=== PATIENT | female | born 1965 | race Caucasian/White ===

== ENCOUNTER 2016-11-24 03:30 | Inpatient (IN) | payer OTHER ==
[~2016-11-24] VITALS: Ht 154.9 cm; Wt 87.5 kg
[~2016-11-24 03:30] MED LIST: LEVOTHYROXINE50 MCG PO; NEXIUM40 M1 PO; ZOLOFT100 M1 PO
[2016-11-24] MEDS ORDERED: COLACE100 M1 PO (10:06)
[2016-11-24] MEDS ORDERED: MIRALAX17 G1 PO (10:06)
[2016-11-24] MEDS ORDERED: ASPIRIN EC325 M2 PO (10:06)
--- NOTE | 2016-11-24 10:06 | RADIOLOGY REPORT ---
EXAMINATION: XR HIP, RIGHT CLINICAL INFORMATION: Status post total hip arthroplasty. COMPARISON: None TECHNIQUE: Two views of the right hip. FINDINGS: Postoperative changes identified with a metallic acetabular cup and short intramedullary femoral component without evidence of immediate hardware complication or fracture. IMPRESSION: Postoperative changes without evidence of consultation.
[2016-11-24] MEDS ORDERED: MS CONTIN15 M2 PO (10:07)
[2016-11-24] MEDS ORDERED: DILAUDID2 M1 PO (10:07)
--- NOTE | 2016-11-24 10:14 | Patient Discharge Instructions ---
Discharge Instructions General Discharge Information You were seen/treated for: Right hip pain secondary to unilateral primary osteoarthritis You had these procedures: Right total hip replacement Watch for these problems: Increasing pain despite the use of pain medication. Increasing redness, warmth, swelling. Drainage of any type from incision. Inability to bear weight on right leg. Persistent nausea and vomitting. Fever greater than 101.5 degrees. Do not soak the wound: Yes No bath, but you may shower: Yes Other wound care: Keep wound clean and dry. Your dressing will be changed on the second day following your surgery, daily dry dressing changes recommended after that. No ointments of any type at any time on or near your incision. No exceptions. Special Instructions: Blood thinner: Aspirin 325 mg is to be taken twice daily to protect you agains the development of a blood clot. Please take with food, and continue to take your medication for acid reflux. Constipation: Pain medication can be very constipating. Please be sure to take your colace and miralax daily to assure you are moving your bowels. You may discontinue this medication if you are having diarrhea. Diet Continue normal diet: Yes Recommended Diet: Regular Additional DIET Information: Advance as tolerated Activity Full Activity/No Limits: No Activity Self Limited: Yes Pounds, do NOT lift more than: 10 Additional ACTIVITY Info: Weight bear as tolerated on right leg. Acute Coronary Syndrome Inclusion Criteria At DC or during hospital stay patient has or had the following: ACS DIAGNOSIS No Discharge Core Measures Meds if any: Prescribed or Continued at Discharge Meds if any: NOT Prescribed or Continued at Discharge Congestive Heart Failure Inclusion Criteria At DC or during hospital stay patient has or had the following: CHF DIAGNOSIS No Discharge Core Measures Meds if any: Prescribed or Continued at Discharge Meds if any: NOT Prescribed or Continued at Discharge Cerebrovascular accident Inclusion Criteria At DC or during hospital stay patient has or had the following: CVA/TIA Diagnosis No Discharge Core Measures Meds if any: Prescribed or Continued at Discharge Meds if any: NOT Prescribed or Continued at Discharge Venous thromboembolism Inclusion Criteria VTE Diagnosis No VTE Type NONE VTE Confirmed by (Test) NONE Discharge Core Measures - Per Current guidelines, there needs to be overlap - treatment for the first 5 days of Warfarin therapy. - If discharged on Warfarin prior to 5 days of - overlap therapy, the patient will need to be - assessed for post discharge needs including - *Post discharge parental anticoagulation - *Warfarin and/or parental anticoagulation education - *Follow up date to check INR post discharge At least 5 days overlap therapy as Inpatient No Meds if any: Prescribed or Continued at Discharge Note: Overlap Therapy is Warfarin and Anticoagulant Meds if any: NOT Prescribed or Continued at Discharge
--- NOTE | 2016-11-24 10:15 | Admission Core Measures ---
Admission Lab Results I reviewed the following labs: Laboratory Tests 11/24 06 Urines Urine Test NEGATIVE Admission Meds I reviewed the following Meds: Current Medications Sig/Stacey Start time Last Medication Dose Stop Time Status Admin Acetaminophen 975 MG ONCE 11/24 0000 NR (Tylenol) 11/24 2358 Cefazolin Sodium 2,000 MG ONCE 11/24 0000 NR (Kefzol-Ancef Inj) 11/24 2358 Levothyroxine Sodium 0.05 MG DAILY AC 11/24 1000 AC (Synthroid) Omeprazole 40 MG DAILY AC 11/25 0700 AC (Prilosec) Oxycodone HCl 10 MG ONCE 11/24 0000 NR (Roxicodone) 11/24 2358 Sertraline HCl 150 MG DAILY 11/24 1000 AC (Zoloft) Acute Coronary Syndrome Inclusion Criteria ACS Diagnosis No Inpatient Core Measures LDL Reminder: If No, please order W/I first 24hr of stay Congestive Heart Failure Inclusion Criteria CHF Diagnosis No Cerebrovascular accident Inclusion Criteria CVA/TIA Diagnosis No Inpatient Core Measures Bedside Swallow Eval Reminder: If BSE failed, place ST order Antithrombotic Reminder: Order Antithrombotic Medication by end of day 2 Antithrombotic Reminder: Document Reason Antithrombotic Not ordered by end of day 2 AFIB/Flutter Reminder: If Present, add to problem list AFIB/Flutter Reminder: Order Anticoag Medication for pts with AFIB/Flutter Atherosclerosis Reminder: If Present, add to problem list LDL Reminder: If No, please order W/I first 24hr of stay PT Order Reminder: If No, please order Venous thromboembolism Inpatient Core Measures VTE Risk Factors: Age > 40, Surgery No [facility] VTE prophylaxis d/t No contraindications No VTE Pharm Prophylaxis d/t No contraindications Inclusion Criteria - Per Current guidelines, there needs to be overlap - treatment for the first 5 days of Warfarin therapy. - Parenteral Anticoagulation (IV or SC) needs to be - given along with Warfarin therapy. VTE Diagnosis No VTE Type NONE VTE Confirmed by (Test) NONE Problem List As ranked by this Provider includes Assessment & Plan 1. Unilateral primary osteoarthritis, right hip HOME MEDS Home Med List Esomeprazole (Nexium) 40 MG CAPSULE. 1 CAP PO DAILY GERD (Reported) Hydromorphone HCl (Dilaudid) 2 MG TABLET 1-2 TAB PO Q4-6 PRN PAIN Levothyroxine Sodium 50 MCG TABLET 1 TAB PO DAILY HYPOTHYROID (Reported) Morphine Sulfate (Ms Contin) 15 MG TABLET.ER 1 TAB PO BID PAIN Sertraline HCl (Zoloft) 100 MG TABLET 1.5 TAB PO DAILY DEPRESSION (Reported)
--- NOTE | 2016-11-24 10:20 | Surgical Discharge Summary ---
Visit Information Visit Dates Admission Date: 11/24/16 Discharge Date: 11/26/16 History of Present Illness Chief Complaint: Right hip pain secondary to osteoarthritis Surgical History Pertinent Surgical History: non-contributory Review of Systems: See H&P Hospital Course Course Attending Physician: SANJAY GEE MD Primary Care Physician: NETTIE WOO [facility] Course: Vanda was admitted to the hospital on 11/24/2016 and underwent a right total hip replacement. She tolerated the procedure well and was transferred to a general surgical floor. There, her vital signs remained stable and her neurovascular status remained intact. Her diet was advanced and tolerated. She voided spontaneously. Her pain was controlled with po pain medication. She was evaluated and treated by physical therapy and was deemed appropriate for discharge. Allergies: Coded Allergies: diazepam (From VALIUM) (SHAKES 11/19/16) epinephrine (PALPATATIONS 11/19/16) Disposition Summary Disposition Principal Diagnosis: Unilatera primary osteoarthritis right hip Additional Diagnosis: none Discharge Disposition: home health services Discharge Instructions General Discharge Information Code Status: Full Code Patient's Diet: Regular, advance as tolerated Patient's Activity: WBAT right hip Follow-Up Instructions/Appts: Follow up with Dr. Gee in 6 weeks from date of surgery Medications at Discharge Discharge Medications: Continue taking these medications: Sertraline HCl (Zoloft) 100 MG TABLET 1.5 Tablet ORAL DAILY Comments: Last Taken:11/26/16 Time:9:30 AM Esomeprazole (Nexium) 40 MG CAPSULE. 1 Capsule ORAL DAILY Comments: Last Taken:11/26/16 Time:6 AM PRILOSEC GIVEN IN HOSP Levothyroxine Sodium (Levothyroxine Sodium) 50 MCG TABLET 1 Tablet ORAL DAILY Comments: Last Taken:11/26/16 Time:6 AM Start taking the following new medications: Hydromorphone HCl (Dilaudid) 2 MG TABLET 1-2 Tablet ORAL EVERY 4-6 HOURS as needed for PAIN Qty = 36 No Refills Comments: Last Taken:11/26/16 Time:9:50 AM Morphine Sulfate (Ms Contin) 15 MG TABLET.ER 1 Tablet ORAL TWICE DAILY Qty = 2 No Refills Aspirin (Ecotrin*) 325 MG TABLET.DR 1 Tablet ORAL TWICE DAILY Qty = 60 No Refills Comments: Last Taken:11/26/16 Time:9:30 AM Docusate Sodium (Colace) 100 MG CAPSULE 1 Capsule ORAL TWICE DAILY Qty = 14 No Refills Instructions: DISCONTINUE USE IF YOU DEVELOP LOOSE STOOL OR DIARRHEA Comments: Last Taken:11/26/16 Time:9:30 AM Polyethylene Glycol 3350 (Miralax) 17 GRAM POWD.PACK 1 Packet ORAL DAILY Qty = 7 No Refills Instructions: dissolve in water, DISCONTINUE USE IF YOU DEVELOP LOOSE STOOL OR DIARRHEA Comments: Last Taken:11/26/16 Time:9:30 AM Miconazole Nitrate (Monistat 7) 2 % CREAM.APPL 1 Application On the skin DAILY Qty = 1 No Refills
[2016-11-24 11:30] VITALS: BP 108/70
--- NOTE | 2016-11-24 13:30 | PN- Orthopedic ---
Subjective Subjective: The patient was seen this afternoon postoperatively. She complains of some sciatic-like pain down the back of her thigh for which the current pain regiment does help. She has no other complaints current time and denies any chest pain or difficulty breathing. Objective Vital Signs and I&Os Vital Signs Date Time Temp Pulse Resp B/P B/P Pulse O2 O2 Flow FiO2 Mean Ox Delivery Rate 11/24 1130 97.4 76 18 108/70 95 Room Air 11/24 1036 99 Room Air Room Air Intake & Output 11/24 1600 11/24 0811/24 0000 11/23 1600 11/23 0811/23 0000 Intake Total Output Total Balance Patient 193 lb Weight Weight Reported by Patient Measurement Method Physical Exam: Gen.: Alert and in obvious distress Skin: Warm and dry Cardiac: S1-S2 regular Pulmonary: Bilateral breath sounds were equal with good exchange Extremities: Bilateral lower extremities are warm without calf tenderness or significant edema. Gross motor and sensory are intact. Right hip surgical dressing is clean, dry, and intact. Assessment/Plan Assessment/Plan Assessment: 51-year-old female status post right total hip arthroplasty. Postoperative the patient is progressing as expected and her pain is under adequate control. Plan: Out of bed with physical therapy patient is weightbearing as tolerated Continue current pain regiment 2 doses of postoperative prophylactic antibiotics GI and DVT prophylaxis First dose of aspirin tonight Follow-up morning laboratory studies Strict I's and O's Incentive spirometry Resume home medications including Cipro which she is taking for a UTI Core Measures/Miscellaneous Venous Thromboembolism VTE Risk Factors: Age > 40, Surgery VTE Contraindications: No Contraindications VTE Diagnosis: No VTE Type: NONE VTE Confirmed by (Test): NONE Beta Maeve Is Beta Maeve a Home Med? No Antibiotics Is Patient on Antibiotics? Yes If Yes: prophylaxis
[2016-11-24 15:37] VITALS: BP 108/52
--- NOTE | 2016-11-24 17:54 | Operative Report ---
Operative/Inv Procedure Report Surgery Date: 11/24/16 Name of Procedure: Right total hip replacement Pre-Operative Diagnosis: Primary right hip DJD Post-Operative Diagnosis: Same Estimated Blood Loss: 250 Surgeon/Director Retirement: GERARD URBINA,SANJAY Resendez Anesthesia: block Operative/Procedure Note Note: Description of Procedure: The patient was taken to the operating room and positively identified. After induction of spinal anesthesia and administration of appropriate pre-operative antibiotics, the patient was positioned supine on the operating room table and all bony prominences were well padded. After performing a surgical timeout, the right lower extremity was prepped and draped in the usual sterile fashion. A direct anterior approach was made to the right hip. The incision was carried sharply through superficial soft tissues to the level of the fascia. Meticulous hemostasis was maintained with Bovie electocautery. The fascia over the tensor fascia jessica muscle was opened sharply and the interval between the TFL and the sartorius was entered bluntly taking care to stay lateral to the lateral femoral cutaneous nerve. Retractors were placed around the femoral neck and the pericapsular fat was identified. The ascending branches of the lateral femoral circumflex vessels were identified and carefully coagulated. The pericapsular fat and anterior capsule were then resected. A napkin ring osteotomy was performed and the femoral head was removed without difficulty. Attention was then turned to the acetabulum. After appropriate placement of retractors, the acetabulum was exposed. Soft tissue was cleaned from the acetabular margin and notch. Overhanging osteophytes were removed and the teardrop was exposed. The acetabulum was then sequentially reamed to accept a 50 mm Jose Luis Tritanium hemispherical 32 shell. This was impacted into place in the appropriate position and fitted with a to mm Trident X3 zero degree polyethylene insert. Attention was then turned to the femur. After performing the appropriate ligament releases, the proximal femur was exposed. It was then sequentially broached to accept a size 2 Conway accolade 2 stem. This was trialed for leg length and stability. The trial component was removed and the final component was impacted into place. The trunnion was carefully cleaned and fit with a 32 mm, +0 Biolox delta ceramic femoral head. The hip was reduced and put through a full range of motion and found to be stable. The articular space was then irrigated with sterile saline. The periarticular soft tissues were infilitrated with Marcaine. The fascial layer was closed with interrupted #1 vicryl suture and the skin was re-approximated with interrupted 2 -0 vicryl. The skin was closed with a running 3-0 V-Lock suture. Steri-strips and a sterile dressing were applied. The patient was awakened and taken to the recovery room in satisfactory condition.
[2016-11-24 18:59] VITALS: BP 112/60
[2016-11-24 22:52] VITALS: BP 112/60
[2016-11-25 03:05] VITALS: BP 118/72
[2016-11-25 06:25] VITALS: BP 110/70
--- NOTE | 2016-11-25 07:57 | PN- Orthopedic ---
Subjective Subjective: Awale, alert Did not sleep well Complaining of pain at surgical site, inability to sleep, UTI at admission causing pain with urinating and burning in the groin area Objective Vital Signs and I&Os Vital Signs Date Time Temp Pulse Resp B/P B/P Pulse O2 O2 Flow FiO2 Mean Ox Delivery Rate 11/25 0625 97.9 72 20 110/70 94 Room Air 11/25 0318 98 Room Air 11/25 0305 97.7 72 20 118/72 96 Room Air 11/24 2252 98.5 65 20 112/60 95 Room Air 11/24 1859 98.3 67 20 112/60 97 Room Air 11/24 1648 Room Air Room Air 11/24 1537 98.4 73 18 108/52 94 11/24 1130 97.4 76 18 108/70 95 Room Air 11/24 1036 99 Room Air Room Air Intake & Output 11/25 0800 11/25 0000 11/24 1600 11/24 0800 11/24 0000 11/23 1600 Intake Total 1400 660 Output Total 3043 407 5309 Balance -1000 500 -590 Intake, IV 600 300 Intake, Oral 800 360 Number 0 Bowel Movements Output, Urine 1300 409 1092 Patient 193 lb Weight Weight Reported by Patient Measurement Method Physical Exam: vss, afebrile voiding well General: alert and oriented times three Chest: clear anteriorly bilaterally, no rales/rhonchi/wheezes, RRR Abd: soft, good bs Ext: warm, no edema, positive sensate, no calf tenderness Wound: dressed, dry Assessment/Plan Assessment/Plan 51yo female pod 1 s/p R ROMMEL PT - wbat continue cipro as preadmit for UTI add asa 325mg po bid for dvt ppx pain management Core Measures/Miscellaneous Venous Thromboembolism VTE Risk Factors: Age > 40, Surgery VTE Contraindications: No Contraindications VTE Diagnosis: No VTE Type: NONE VTE Confirmed by (Test): NONE Beta Maeve Is Beta Maeve a Home Med? No Antibiotics Is Patient on Antibiotics? Yes If Yes: prophylaxis
[2016-11-25 08:14] LABS: ABSOLUTE BASOPHIL COUNT 0 /CUMM (0.0-0.2); ABSOLUTE EOSINOPHIL COUNT 0.1 /CUMM (0.0-0.7); ABSOLUTE GRANULOCYTE CT 7.2 /CUMM (1.4-6.5); ABSOLUTE LYMPH COUNT 1.5 /CUMM (1.2-3.4); ABSOLUTE MONOCYTE COUNT 0.7 /CUMM (0.10-0.60); BASOPHIL % 0.1 % (0.0-2.0); EOSINOPHIL % 0.5 % (0-5); GRANULOCYTE % 76.6 % (42.2-75.2); HEMATOCRIT 34.7 % (37-47); MEAN CORPUSCULAR HGB 28.4 PG (27.0-31.0); MEAN CORPUSCULAR HGB CONC 34.2 G/DL (33.0-37.0); MEAN CORPUSCULAR VOLUME 82.9 FL (81.0-99.0); MEAN PLATELET VOLUME 7.7 FL (7.4-10.4); PLATELET COUNT 229 /CUMM (130-400); RBC DISTRIBUTION WIDTH 13.5 % (11.5-14.5); RED BLOOD CELL CT 4.18 /CUMM (4.20-5.40); WHITE BLOOD CELL COUNT 9.4 /CUMM (4.8-10.8)
[2016-11-25 11:23] VITALS: BP 114/60
--- NOTE | 2016-11-25 12:05 | NUR ---
COMPRESSION STOCKINGS X 2 GIVEN TO PATIENT
--- NOTE | 2016-11-25 14:19 | NUR ---
PHYSICAL THERAPY: ATTEMPTED TO TREAT THIS PATIENT. WAS PRESENTED IN BED WITH PRESENT. REPORTS SHE JUST GOT BACK TO BED AND SHE AMBULATED WITH NURSING AROUND THE FLOOR. REFUSING PT AT THIS TIME AND WILL F/U APPROPRIATE. THANK YOU
[2016-11-25 15:12] VITALS: BP 108/62
--- NOTE | 2016-11-25 20:00 | NUR ---
PT CONCERNED ABOUT SURGICAL SITE, REDNESS & SWELLING NOTED TO R SIDE OF DRESSING. NO DRAINAGE NOTED. SURGICAL PA NATALI MADE AWARE. NO NEW ORDERS. ICE TO R HIP. WILL CONTINUE TO MONITOR.
[2016-11-25 22:26] VITALS: BP 110/60
[2016-11-26 07:01] VITALS: BP 118/64
--- NOTE | 2016-11-26 07:27 | PN- Orthopedic ---
Subjective Subjective: POD#2 S/P RIGHT ROMMEL NO MAJOR ISSUES OVERNIGHT COMFORTABLE NOW Objective Vital Signs and I&Os Vital Signs Date Time Temp Pulse Resp B/P B/P Pulse O2 O2 Flow FiO2 Mean Ox Delivery Rate 11/26 0701 98.5 70 16 118/64 97 Room Air 11/25 2226 98.8 74 20 110/60 95 Room Air 11/25 1512 97.7 76 18 108/62 97 11/25 1211 95 Room Air 11/25 1123 98.0 67 18 114/60 97 Room Air Intake & Output 11/26 0800 11/26 0000 11/25 1600 11/25 0800 11/25 0000 11/24 1600 Intake Total 600 700 560 382 9194 660 Output Total 500 1200 1100 9493 464 5741 Balance 100 -500 -400 -700 500 -590 Intake, IV 0 600 600 300 Intake, Oral 600 700 700 100 800 360 Number 0 0 Bowel Movements Output, Urine 500 1200 1100 [phone] Patient 193 lb Weight Weight Reported by Patient Measurement Method Physical Exam: CV: RRR LUNGS: CLEAR ABD: SOFT, +BS EXT: DRSG CHANGED, WOUND C/D/I NO CALF TENDERNESS BILAT DISTAL CMS INTACT Assessment/Plan Assessment/Plan ORTHO STABLE PLAN HOME TODAY F/U DR GEE 6 WEEKS Core Measures/Miscellaneous Venous Thromboembolism VTE Risk Factors: Age > 40, Surgery VTE Contraindications: No Contraindications VTE Diagnosis: No VTE Type: NONE VTE Confirmed by (Test): NONE Beta Maeve Is Beta Maeve a Home Med? No Antibiotics Is Patient on Antibiotics? Yes If Yes: prophylaxis
[2016-11-26] MEDS ORDERED: MONISTAT 745 GM TOP (10:39)
== END 2016-11-26 13:00 | disposition home health service (06) | DRG 470 ==
LOC: SDA 03:30 → ENRESERV 10:06 → 2NA 10:54 → ENPENDDIS 11-26 07:48 → 2NA 11-26 13:00
PROVIDERS: Nurse Practitioner; ADMIT Orthopaedic Surgery
PROC: 0SR904A Replacement of Right Hip Joint with Ceramic on Polyethylene Synthetic Substitute, Uncemented, Open Approach (ICD-10-PCS; principal; 2016-11-24)
DX: M16.11 Unilateral primary osteoarthritis, right hip (principal); E66.9 Obesity, unspecified; N39.0 Urinary tract infection, site not specified; E03.9 Hypothyroidism, unspecified; J45.909 Unspecified asthma, uncomplicated; Z68.36 Body mass index [BMI] 36.0-36.9, adult
CPT/HCPCS: 2NAP; 73502-RT; 81025; 82436; 88304; 97116-GO; 97161-GP; 97530-GO; J0131; J0690; J0735; J2405; J2550; J7042